=== PATIENT | male | born 1955 | race Two or more races ===

== ENCOUNTER 2022-06-16 21:33 | Inpatient (IN) | payer BC, MEDICARE ==
[~2022-06-16] VITALS: Ht 175.3 cm; Wt 55.3 kg
--- NOTE | 2022-06-16 21:45 | NUR ---
BIB FOR C/O SOB. PT HAS TRACH STOMA WITHOUT A TRACH IN PLACE WAS SEEN AT [facility]. TESTE + FOR INFULENZA 1. AMBULATORY, PLACED IN BED, BREATHING UNLABORED SATURATING AT 94%RA
[2022-06-16] MEDS ORDERED: ALBUTEROL FS 2.5 MG/0.5 ML VIAL.NEB NEB ONE (22:00)
[2022-06-16] MEDS ORDERED: IPRATROPIUM NEB FS 0.5 MG/2.5 ML AMPUL.NEB NEB ONE (22:00)
[2022-06-16] MEDS ORDERED: ALBUTEROL FS 2.5 MG/0.5 ML VIAL.NEB ONE (22:12)
[2022-06-16] MEDS ORDERED: IPRATROPIUM NEB FS 0.5 MG/2.5 ML AMPUL.NEB ONE (22:12)
--- NOTE | 2022-06-16 22:14 | NUR ---
EMT AT PT'S BEDSIDE FOR EKG
--- NOTE | 2022-06-16 22:16 | NUR ---
RESEARCH ANTHROPOLOGIST AT PT'S BEDSIDE
--- NOTE | 2022-06-16 22:25 | NUR ---
SWAB FOR COVID19 SENT TO LAB
[2022-06-16 22:39] LABS: BASOPHILS % (AUTO) 0.1 % (0.0-2.0); HEMATOCRIT 42 % (39-51); HEMOGLOBIN 13.4 g/dL (13.5-17.5); LYMPHOCYTES # (AUTO) 0.2 K/uL (0.8-4.8); LYMPHOCYTES % (AUTO) 2.3 % (20.0-44.0); MEAN CORPUSCULAR HGB CONC 32 g/dl (31.0-36.0); MEAN CORPUSCULAR VOLUME 91 fL (80-96); MONOCYTES # (AUTO) 0.6 K/uL (0.1-1.30); MONOCYTES % (AUTO) 5.4 % (2.0-12.0); NEUTROPHILS # (AUTO) 9.9 K/uL (1.8-8.9); NEUTROPHILS % (AUTO) 92.2 % (43.0-81.0); PLATELET COUNT (AUTO) 279 K/uL (150-450); RED BLOOD CELL COUNT(AUTO) 4.55 MIL/uL (4.5-6.0); WHITE BLOOD COUNT (AUTO) 10.8 K/uL (4.3-11.0)
--- NOTE | 2022-06-16 22:49 | NUR ---
SWAB FOR RAPID INFLUENZA SENT TO LAB
[2022-06-16 22:58] LABS: ALANINE AMINOTRANSFERASE 26 U/L (12-78); ALKALINE PHOSPHATASE 133 U/L (46-116); ASPARTATE AMINOTRANSFERASE 47 U/L (15-37); BILIRUBIN,DIRECT 0.3 mg/dL (0.0-0.2); BILIRUBIN,TOTAL 0.7 mg/dL (0.2-1.0); CALCIUM, SERUM 8.4 mg/dL (8.5-10.1); CARBON DIOXIDE 26 mmol/L (21-32); CHLORIDE 96 mmol/L (98-107); CREATININE 0.9 mg/dL (0.6-1.3); GLUCOSE 105 mg/dL (74-106); POTASSIUM 3.9 mmol/L (3.5-5.1); SODIUM SERUM 131 mmol/L (136-145); TOTAL PROTEIN, SERUM 7.4 g/dL (6.4-8.2); UREA NITROGEN, BLOOD 11 mg/dL (7-18)
[2022-06-16] MEDS ORDERED: ADENOSINE 6 MG/2 ML VIAL ONE ×3 (23:25→23:43)
[2022-06-16] MEDS ORDERED: ADENOSINE 6 MG/2 ML VIAL IVP ONE (23:30)
[2022-06-16] MEDS ORDERED: DILTIAZEM HCL 25 MG IV ONE (23:57)
[2022-06-17] MEDS ORDERED: DILTIAZEM HCL 50 MG IV IV ONE
[2022-06-17] MEDS ORDERED: ADENOSINE 6 MG/2 ML VIAL IVP ONE ×2
[2022-06-17] MEDS ORDERED: DILTIAZEM HCL 50 MG IV ONE (00:25)
[2022-06-17] MEDS ORDERED: DILTIAZEM HCL 25 MG IV ONE (00:25)
[2022-06-17] MEDS ORDERED: DILTIAZEM HCL IV 125 MG in IV NS 0.9% 100 ML IV PRN (00:30)
[2022-06-17] MEDS ORDERED: oxyCODONE IR immediate release 5 MG PO ONE (02:00)
[2022-06-17] MEDS ORDERED: oxyCODONE IR immediate release 5 MG ONE (02:09)
[2022-06-17] MEDS ORDERED: ONDANSETRON HCL/PF 4 MG/2 ML VIAL IVP PRN (02:30)
[2022-06-17] MEDS ORDERED: ACETAMINOPHEN 325 MG TABLET PO PRN (02:30)
[2022-06-17] MEDS ORDERED: ALBUTEROL FS 2.5 MG/0.5 ML VIAL.NEB NEB PRN (02:30)
[2022-06-17] MEDS ORDERED: MORPHINE SULFATE INJ 2 MG/ML DISP.SYRIN IV PRN ×2 (02:30→10:00)
[2022-06-17] MEDS ORDERED: hydrALAZINE HCL IV 20 MG VIAL IV PRN (02:30)
[2022-06-17 02:46] LABS: THYROID STIMULATING HORMONE 1.63 uIU/mL (0.358-3.74)
[2022-06-17] MEDS ORDERED: IOHEXOL-350 100 ML VIAL IV ONE (05:08)
[2022-06-17] MEDS ORDERED: IV NS 0.9% 250 ML IV ONE (05:09)
--- NOTE | 2022-06-17 05:17 | NUR ---
TAKEN TO CT VIA JON
[2022-06-17] MEDS ORDERED: IPRATROPIUM/ALBUTEROL INHALER IH SCH (06:00)
[2022-06-17] MEDS ORDERED: ENOXAPARIN SODIUM 60 MG/0.6 ML DISP.SYRIN SQ SCH (06:35)
--- NOTE | 2022-06-17 07:15 | NUR ---
RECEIVED PT FROM CHAGO RN PT AWAKE AND ALERT DINNES CHEST PAIN
--- NOTE | 2022-06-17 07:25 | NUR ---
WITH TRACH STOMA AND TRACK MASK FIO2 6L STOMA MASK
[2022-06-17] MEDS ORDERED: MORPHINE SULFATE INJ 2 MG/ML DISP.SYRIN ONE (07:47)
[2022-06-17] MEDS ORDERED: ENOXAPARIN SODIUM 60 MG/0.6 ML DISP.SYRIN SQ ONE (07:47)
--- NOTE | 2022-06-17 07:50 | NUR ---
UA SENT TO LAB
--- NOTE | 2022-06-17 08:30 | NUR ---
HAND OFF DANNIELLE RN TO ROOM 105
--- NOTE | 2022-06-17 08:38 | NUR ---
RESTING AT THIS TIME NO ACUTE DISTRESS C/O PAIN 12/07 AND ONLY REQUSTED OX 15MG
--- NOTE | 2022-06-17 08:54 | NUR ---
ECCHO CARDO GRAM DONE AT BED SIDE
[2022-06-17] MEDS ORDERED: LORAZEPAM INJ 2 MG/ML VIAL ONE (09:03)
[2022-06-17] MEDS ORDERED: HYDROMORPHONE 1 MG/1 ML DISP.SYRIN IV PRN (09:30)
[2022-06-17] MEDS ORDERED: CEFTRIAXONE 1 G in IV D5W 50 ML IV SCH (10:00)
--- NOTE | 2022-06-17 10:00 | NUR ---
RN NOTE RECEIVED PATIENT IN STABLE CONDITION PLACED IN ROOM 105
[2022-06-17] MEDS ORDERED: OXYC15TA2 PO (10:50)
[2022-06-17] MEDS ORDERED: OXYC60TA8 PO (10:50)
[2022-06-17] MEDS ORDERED: AMIODARONE 150 MG in IV D5W 100 ML IV ONE (11:00)
[2022-06-17] MEDS: methylPREDNISolone SOD SUCC 125 MG/2ML VIAL IV SCH ×3 (11:17→20:13)
[2022-06-17 12:00] VITALS: BP 126/81
[2022-06-17] MEDS: PIPERACILLIN /TAZOBACTAM 3.375 G in IV D5W 50 ML IV SCH ×3 (12:00→23:45)
[2022-06-17] MEDS: oxyCODONE HCL SR 20MG TAB.SR.12H PO SCH ×2 (12:11→16:33)
[2022-06-17] MEDS: AMIODARONE 450 MG in IV D5W 241 ML IV PRN ×2 (12:24→19:12)
[2022-06-17] MEDS ORDERED: ALBUTEROL FS 2.5 MG/3 ML VIAL.NEB NEB SCH (13:30)
[2022-06-17 16:00] VITALS: BP 124/65
--- NOTE | 2022-06-17 19:17 | NUR ---
RN CLOSING NOTE PATIENT IN BED A/OX4 ON TRACH MASK WITH NO CURRENT SOB OR PAIN EXPRESSED. PATIENT IS CURRENTLY ON CARDIZEM DRIP RUNNING 0.5MG/MIN NEW BAG WAS PLACED.ON TELE MONITOR. PATIENT IS ABLE TO MAKE NEEDS KNOWN. SAFETY MEASURES IN PLACE PER HOSPITAL POLICY WILL ENDORSE TO NIGHT NURSE OF ADIEL.
--- NOTE | 2022-06-17 19:30 | NUR ---
RN OPENING NOTE RECEIVED PATIENT IN BED, AWAKE, A/O X 4, PT NOTED TO HAVE TRACH STOMA BUT WITH NO TRACH IN PLACE. ABLE TO MAKE NEEDS KNOWN BY USING DEVICE UNDER HIS THROAT WHERE HECAN TALK AND BE UNDERSTOOD. CURRENTLY ON TRACH MASK AT 6LPM, TOLERATING WELL WITH NO S/SX OF ACUTE RESPI DISTRESS NOTED AT THIS TIME. TELE MONITOR READS AFIB WITH HR IN THE 60s. IV ACCESS ON LFA AND LALI ML INFUSING AMIO DRIP @ 0.5 MG/MIN. ALL SAFETY MEASURES IN PLACE PER HOSPITAL POLICY: BED LOCKED IN LOW POSITION, BED ALARM ON, CALL LIGHT WITHIN REACH. WILL CONTINUE TO MONITOR PT.
[2022-06-17 20:00] VITALS: BP 130/78
[2022-06-17] MEDS: DOXYCYCLINE HYCLATE (100 MG) 100 MG TABLET PO SCH (20:14)
[2022-06-17] MEDS: ENOXAPARIN SODIUM 60 MG/0.6 ML DISP.SYRIN SQ SCH (20:16)
[2022-06-17] MEDS: IPRATROPIUM NEB FS 0.5 MG/2.5 ML AMPUL.NEB NEB SCH (20:25)
[2022-06-17] MEDS: oxyCODONE IR immediate release 5 MG PO PRN (20:27)
[2022-06-18] VITALS: BP 132/80
[2022-06-18] MEDS: IPRATROPIUM NEB FS 0.5 MG/2.5 ML AMPUL.NEB NEB SCH ×4 (01:30→20:23)
[2022-06-18] MEDS: oxyCODONE IR immediate release 5 MG PO PRN ×3 (01:32→17:39)
[2022-06-18 04:00] VITALS: BP 118/68
[2022-06-18] MEDS: PIPERACILLIN /TAZOBACTAM 3.375 G in IV D5W 50 ML IV SCH ×3 (05:05→17:05)
[2022-06-18] MEDS: methylPREDNISolone SOD SUCC 125 MG/2ML VIAL IV SCH ×3 (05:10→21:19)
--- NOTE | 2022-06-18 06:37 | NUR ---
RN NOTE PT REMAINED STABLE T/O THE NIGHT. ALL DUE MEDS GIVEN. NEEDS ATTENDED TO. WILL ENDORSE TO AM SHIFT NURSE FOR ADIEL.
[2022-06-18 06:55] LABS: HEMATOCRIT 38 % (39-51); HEMOGLOBIN 12.5 g/dL (13.5-17.5); LYMPHOCYTES # (AUTO) 0.2 K/uL (0.8-4.8); LYMPHOCYTES % (AUTO) 4.3 % (20.0-44.0); MEAN CORPUSCULAR HGB CONC 33 g/dl (31.0-36.0); MEAN CORPUSCULAR VOLUME 91 fL (80-96); MONOCYTES # (AUTO) 0.3 K/uL (0.1-1.30); MONOCYTES % (AUTO) 4.6 % (2.0-12.0); NEUTROPHILS # (AUTO) 5.3 K/uL (1.8-8.9); NEUTROPHILS % (AUTO) 91.1 % (43.0-81.0); PLATELET COUNT (AUTO) 299 K/uL (150-450); RED BLOOD CELL COUNT(AUTO) 4.22 MIL/uL (4.5-6.0); WHITE BLOOD COUNT (AUTO) 5.8 K/uL (4.3-11.0)
--- NOTE | 2022-06-18 07:48 | NUR ---
RN OPENING NOTE RECEIVED PATIENT IN BED, AWAKE, A/O X 4, PT NOTED TO HAVE TRACH STOMA BUT WITH NO TRACH IN PLACE. ABLE TO MAKE NEEDS KNOWN BY USING DEVICE UNDER HIS THROAT WHERE HECAN TALK AND BE UNDERSTOOD. CURRENTLY ON TRACH MASK AT 6LPM, TOLERATING WELL WITH NO S/SX OF ACUTE RESPI DISTRESS NOTED AT THIS TIME. TELE MONITOR READS AFIB WITH HR IN THE 60s. IV ACCESS ON LFA AND LALI ML INFUSING AMIO DRIP @ 0.5 MG/MIN. BED IS AT LOWEST POSITION , CALL LIGHT WITHIN REACH , BED ALARM IS ON, BED SIDE RAILS ARE UP , WILL CONTINUE TO MONITOR
[2022-06-18 07:51] LABS: ALBUMIN 2.5 g/dL (3.4-5.0); BILIRUBIN,TOTAL 0.5 mg/dL (0.2-1.0); CALCIUM, SERUM 8.7 mg/dL (8.5-10.1); CREATININE 0.8 mg/dL (0.6-1.3); MAGNESIUM 2.4 mg/dL (1.8-2.4); PHOSPHORUS 2.6 mg/dL (2.5-4.9); POTASSIUM 4.2 mmol/L (3.5-5.1); TOTAL PROTEIN, SERUM 6.9 g/dL (6.4-8.2)
[2022-06-18 08:00] VITALS: BP 153/89
[2022-06-18] MEDS: oxyCODONE HCL SR 20MG TAB.SR.12H PO SCH ×4 (08:49→21:19)
--- NOTE | 2022-06-18 08:49 | NUR ---
RN NOTE PATIENT GOT OXY IR 15 MG PRN MED AT 0730 , HOLD OXYCODONE FOR NOW
[2022-06-18] MEDS: DOXYCYCLINE HYCLATE (100 MG) 100 MG TABLET PO SCH ×2 (08:52→21:19)
[2022-06-18] MEDS: ENOXAPARIN SODIUM 60 MG/0.6 ML DISP.SYRIN SQ SCH ×2 (08:55→21:20)
[2022-06-18] MEDS ORDERED: NALOXONE HCL 0.4 MG/ML AMPUL IV PRN ×3 (10:30→17:30)
[2022-06-18] MEDS ORDERED: oxyCODONE HCL SR 20MG TAB.SR.12H PO ONE (10:30)
--- NOTE | 2022-06-18 10:30 | NUR ---
amiodarone drip bag infused , dr Dominguez notified , order to d/c amiodarone received
[2022-06-18 13:05] VITALS: BP 145/75
[2022-06-18 16:07] VITALS: BP 137/71
[2022-06-18] MEDS ORDERED: oxyCODONE HCL SR 20MG TAB.SR.12H PO SCH (17:30)
--- NOTE | 2022-06-18 17:40 | NUR ---
RN NOTE PATIENT REQUESTED TO GET NEXT DOSE OF THE OXYCODONE 60 MG AT 10 PM
--- NOTE | 2022-06-18 18:26 | NUR ---
RN CLOSING NOTE PATIENT IN BED A/OX4 ON TRACH MASK WITH NO CURRENT SOB OR PAIN EXPRESSED. PATIENT IS CURRENTLY complited CARDIZEM DRIP ON TELE MONITOR AFIB 85. PATIENT IS ABLE TO MAKE NEEDS KNOWN. SAFETY MEASURES IN PLACE PER HOSPITAL POLICY, ALL MEDICATIONS WERE ADMINISTERD , ALL NEEDS WERE MET WILL ENDORSE TO NIGHT NURSE OF ADIEL.
[2022-06-18 20:00] VITALS: BP 133/84
--- NOTE | 2022-06-18 21:19 | NUR ---
MARK ANTHONY RN OPENING NOTE PT RECEIVED IN BED, AWAKE, A&O X4, CALM, COOPERATIVE. PT NOTED TO HAVE TRACH COLLAR WITH 8L O2 AND CURRENT O2SAT OF 99%; NOTED TO HAVE SLIGHT SOB AND COUGH. PT ATTACHED TO EXTERNAL MONITOR, AFIB WITH HR OF 71. IV ACCESS ON LALI MIDLINE AND LFA 20G INTACT AND PATENT, FLUSHES EASILY WITH NO RESISTANCE, NS TKO INFUSING. BED IN LOWEST POSITION, CALL LIGHT WITHIN REACH, SIDE RAILS UP X2. WILL CONTINUE TO MONITOR THROUGHOUT THE NIGHT.
--- NOTE | 2022-06-18 23:37 | NUR ---
RN NOTE PT REPORTS OF DYSPEPSIA. ORDER RECEIVED FROM MATTY FOR MAALOX 30 ML. ORDER CARRIED OUT.
[2022-06-19] VITALS (19 sets, daily range): BP systolic 97–181; BP diastolic 61–123
[2022-06-19] MEDS ORDERED: MAG HYDROX/AL HYDROX/SIMETH 30 ML UDC PO PRN ×2 (00:30)
[2022-06-19] MEDS: PIPERACILLIN /TAZOBACTAM 3.375 G in IV D5W 50 ML IV SCH ×4 (00:35→17:01)
[2022-06-19] MEDS: IPRATROPIUM NEB FS 0.5 MG/2.5 ML AMPUL.NEB NEB SCH ×5 (01:19→19:36)
--- NOTE | 2022-06-19 01:23 | NUR ---
RN NOTE PT REFUSED BREATHING TREATMENTS SCHEDULED FOR 0120
[2022-06-19] MEDS: oxyCODONE HCL SR 20MG TAB.SR.12H PO SCH ×3 (05:00→20:36)
[2022-06-19] MEDS: methylPREDNISolone SOD SUCC 125 MG/2ML VIAL IV SCH ×3 (05:36→20:35)
[2022-06-19 07:09] LABS: BASOPHILS % (AUTO) 0.2 % (0.0-2.0); HEMATOCRIT 37 % (39-51); HEMOGLOBIN 11.8 g/dL (13.5-17.5); LYMPHOCYTES # (AUTO) 0.3 K/uL (0.8-4.8); LYMPHOCYTES % (AUTO) 4.4 % (20.0-44.0); MEAN CORPUSCULAR HGB CONC 32 g/dl (31.0-36.0); MEAN CORPUSCULAR VOLUME 90 fL (80-96); MONOCYTES # (AUTO) 0.4 K/uL (0.1-1.30); MONOCYTES % (AUTO) 6.5 % (2.0-12.0); NEUTROPHILS # (AUTO) 5.7 K/uL (1.8-8.9); NEUTROPHILS % (AUTO) 88.9 % (43.0-81.0); PLATELET COUNT (AUTO) 321 K/uL (150-450); RED BLOOD CELL COUNT(AUTO) 4.04 MIL/uL (4.5-6.0); WHITE BLOOD COUNT (AUTO) 6.4 K/uL (4.3-11.0)
--- NOTE | 2022-06-19 07:10 | NUR ---
MARK ANTHONY RN CLOSING NOTE PT REMAINS IN BED, AWAKE, A&O X4, APPEARS TO BE RESTLESS AND ANXIOUS. TRACH COLLAR INTACT AND PATENT, PT ABLE TO SUCTION SELF. O2SAT RANGED FROM 99%-100% THROUGHOUT THE NIGHT; NOTED TO HAVE COUGH AND SOB, NO OTHER S/S OF RESP DISTRESS, NON-LABORED AND EQUAL BREATHING. ATTACHED TO EXTERNAL MONITOR, AFIB WITH HR LOW 38 NOT SUSTAINED AND HIGH 138 AT 0530 WHEN PT WAS PANICKING. LALI MIDLINE INTACT AND PATENT WITH NS TKO INFUSING. ALL DUE MEDS ADMINISTERED DURING THE NIGHT. BED IN LOWEST POSITION, CALL LIGHT WITHIN REACH, SIDE RAILS UP X2. WILL ENDORSE TO DAYSHIFT NURSE TO CONTINUE CARE.
--- NOTE | 2022-06-19 07:15 | NUR ---
MARK ANTHONY RN OPEN NOTE PT REMAINS IN BED, AWAKE, A&O X4, APPEARS TO BE RESTLESS AND ANXIOUS. TRACH COLLAR INTACT AND PATENT, PT ABLE TO SUCTION SELF. O2SAT RANGED FROM 99% NOTED TO HAVE COUGH AND SOB, NO OTHER S/S OF RESP DISTRESS, NON-LABORED AND EQUAL BREATHING. ATTACHED TO EXTERNAL MONITOR, AFIB WITH HR 76 LALI MIDLINE INTACT AND PATENT WITH NS TKO INFUSING.PATIENT IS NPO TO CARDIOVERSION SCEDULAED TOADAY AT [address] DEBBY Louis BED IN LOWEST POSITION, CALL LIGHT WITHIN REACH, SIDE RAILS UP X2. WILL CONTINUE TO MONITOR
[2022-06-19 07:36] LABS: CALCIUM, SERUM 8.7 mg/dL (8.5-10.1); CREATININE 0.7 mg/dL (0.6-1.3); POTASSIUM 3.8 mmol/L (3.5-5.1)
--- NOTE | 2022-06-19 08:00 | NUR ---
PATIENT TAKEN TO ICU FOR CARDIOVERSION , REPORT WAS GIVEN TO THE SAIMA RIOS
--- NOTE | 2022-06-19 08:00 | NUR ---
ICU/RN PT IS TRANSFERED FROM TELE UNIT.FOR CARDIOVERSION.V/S STABLE,AFEBRILE.NO PAIN REPORTED AT THIS TIME.PT HAS NECK STOMA ,NO TRACHEOSTOMY ON 6 L ,SAT O2-100%. A-FIB ON MONITOR.AWAKE,ALERT.USE URINAL. RIGHT UPPER ARM MIDLINE HAS RESISTANCE.
[2022-06-19] MEDS ORDERED: methylPREDNISolone SOD SUCC 125 MG/2ML VIAL ONE (08:05)
[2022-06-19] MEDS ORDERED: ANESTHESIA TRAY IN PYXIS 1 EA TRAY MC ONE (08:14)
[2022-06-19] MEDS: DOXYCYCLINE HYCLATE (100 MG) 100 MG TABLET PO SCH ×2 (08:36→20:35)
[2022-06-19] MEDS: ENOXAPARIN SODIUM 60 MG/0.6 ML DISP.SYRIN SQ SCH ×2 (08:37→20:38)
--- NOTE | 2022-06-19 09:00 | NUR ---
ICU/RN NEW IV LINE STARTED ON THE RIGHT HAND.
--- NOTE | 2022-06-19 09:15 | NUR ---
ICU/RN CARDIOVERSION DONE BY DR GARIBAY.PT IS SINUS RHYTHM. EKG ORDERED.PROPOFOL WAS GIVEN BY ANESTHESIOLOGIST. STILL RECOVERING.
--- NOTE | 2022-06-19 10:00 | NUR ---
ICU/RN DUE MEDS ARE GIVEN ORDERED.OK TO TRANSFER TO TELE
[2022-06-19] MEDS: AMIODARONE HCL 200 MG TABLET PO SCH ×2 (10:39→16:09)
[2022-06-19] MEDS: oxyCODONE IR immediate release 5 MG PO PRN ×3 (10:59→22:19)
--- NOTE | 2022-06-19 11:00 | NUR ---
ICU/RN PT C/O OF PAIN 8-02/07.OXYCODONE PO GIVEN ORDERED.PT TRANSFER BACK TO MARK ANTHONY.REPORT GIVEN TO RAFAEL/SAIMA
--- NOTE | 2022-06-19 18:22 | NUR ---
MARK ANTHONY RN CLOSING NOTE PT REMAINS IN BED, AWAKE, A&O X4, TRACH COLLAR INTACT AND PATENT, PT ABLE TO SUCTION SELF. O2SAT 99% NOTED TO HAVE COUGH AND SOB, NO OTHER S/S OF RESP DISTRESS, NON-LABORED AND EQUAL BREATHING. ATTACHED TO EXTERNAL MONITOR, sr WITH HR 76 AFTER CARDIOVERSION .PATIENT TOLERATED PROCEDURE WELL.MID LINE GOT CLOTTED BUT PATIENT REFUSED FOR ME TO REMOVE IT , IV LINE STARTED IN ICU 24 G ON HIS LEFT WRIST , BLOODT DRESSING , PATIENT REFUSING TO CLEAN /CHANGE THE DRESSING TKO RUNNING AT 10 ML/HR . PATIENT IS BACK TO PURE DIET .ALL MEDICATIONS WERE ADMINISTERED , ALL NEEDS WERE MET. BED IS IN LOWEST POSITION, CALL LIGHT WITHIN REACH, SIDE RAILS UP X2. WILL ENDORSE BOWLING BALL ENGRAVER NURSE TO FALLOW POC
--- NOTE | 2022-06-19 21:03 | NUR ---
BROILER CHEF OR COOK OPENING NOTE PT RECEIVED IN BED, AWAKE, A&O X4, CALM, COOPERATIVE. PT'S STOMA INTACT AND PATENT, ON 8L O2 WITH CURRENT O2SAT OF 99%; NOTED TO HAVE COUGH AND SOB; NO OTHER S/S OF RESP DISTRESS, NON-LABORED AND EQUAL BREATHING. PT ATTACHED TO EXTERNAL MONITOR, SR WITH HR OF 62. IV ACCESS ON RIGHT WRIST 20G, INTACT AND PATENT, FLUSHES EASILY WITH NO RESISTANCE, NS AT TKO. BED IN LOWEST POSITION, CALL LIGHT WITHIN REACH, SIDE RAILS UP X3. WILL CONTINUE TO MONITOR THROUGHOUT THE NIGHT. Addendum: 06/19/22 at 2250 by PRINCESS FAYE LANDAVERDE MARK ANTHONY RN OPENING NOTE
--- NOTE | 2022-06-19 22:19 | NUR ---
RN NOTE PT EXPERIENCING BREAKTHROUGH PAIN AND IS SCALED 8/10. PT REQUESTS FOR OXYCODONE. PT ADMINISTERED OXYCODONE 15 MG IMMEDIATE RELEASE. WILL MONITOR FOR EFFECTIVENESS.
[2022-06-20] VITALS: BP 137/72
[2022-06-20] MEDS: PIPERACILLIN /TAZOBACTAM 3.375 G in IV D5W 50 ML IV SCH ×5 (00:01→23:37)
[2022-06-20] MEDS: IPRATROPIUM NEB FS 0.5 MG/2.5 ML AMPUL.NEB NEB SCH ×4 (01:30→19:30)
[2022-06-20 04:00] VITALS: BP 141/89
[2022-06-20] MEDS: methylPREDNISolone SOD SUCC 125 MG/2ML VIAL IV SCH (04:12)
[2022-06-20] MEDS: oxyCODONE HCL SR 20MG TAB.SR.12H PO SCH ×3 (04:12→13:14)
[2022-06-20] MEDS: oxyCODONE IR immediate release 5 MG PO PRN ×3 (05:12→18:48)
--- NOTE | 2022-06-20 05:12 | NUR ---
RN NOTE PT CONTINUES TO HAVE SEVERE PAIN. PT ADMINISTERED 15 MG OF OXYCODONE. WILL MONITOR FOR EFFECTIVENESS.
--- NOTE | 2022-06-20 06:21 | NUR ---
MARK ANTHONY RN CLOSING NOTE PT REMAINS IN BED, ASLEEP BUT EASILY AROUSABLE. TRACH COLLAR INTACT AND PATENT WITH O2 AT 10L AND FIO2 AT 40%; CONTINUES TO HAVE SOB AND COUGH; NO OTHER S/S OF RESP DISTRESS, NON-LABORED AND EQUAL BREATHING. ATTACHED TO EXTERNAL MONITOR, SR-SB WITH PACS, HR NOTED TO BE LOW 40S. RIGHT WRIST 24G INTACT AND PATENT, FLUSHES EASILY WITH NO RESISTANCE; NS TKO INFUSING. ALL DUE MEDS ADMINISTERED DURING THE NIGHT. BED IN LOWEST POSITION, CALL LIGHT WITHIN REACH, SIDE RAILS UP X3. WILL ENDORSE TO DAYSHIFT NURSE TO CONTINUE CARE.
[2022-06-20 06:57] LABS: HEMATOCRIT 36 % (39-51); HEMOGLOBIN 11.6 g/dL (13.5-17.5); LYMPHOCYTES # (AUTO) 0.3 K/uL (0.8-4.8); MEAN CORPUSCULAR HGB CONC 33 g/dl (31.0-36.0); MEAN CORPUSCULAR VOLUME 91 fL (80-96); MONOCYTES # (AUTO) 0.5 K/uL (0.1-1.30); MONOCYTES % (AUTO) 7.2 % (2.0-12.0); NEUTROPHILS % (AUTO) 88.8 % (43.0-81.0); PLATELET COUNT (AUTO) 285 K/uL (150-450); WHITE BLOOD COUNT (AUTO) 6.8 K/uL (4.3-11.0)
--- NOTE | 2022-06-20 07:30 | NUR ---
MARK ANTHONY RN OPENING NOTE PT REMAINS IN BED, ASLEEP BUT EASILY AROUSABLE. TRACH COLLAR INTACT AND PATENT WITH O2 AT 10L AND FIO2 AT 40%; NO S/S OF RESP DISTRESS, NON-LABORED AND EQUAL BREATHING. PT ON TELE MONITOR CURRENTLY READING A FIB 48. NO SIGNS OF PAIN OR DISCOMFORT NOTED AT THIS TIME. PT HAS R WRIST 24 G INTACT, PATENT AND FLUSHES WELL. ALL SAFETY MEASURES IN PLACE. CALL LIGHT WITHIN REACH. BED LOCKED AND IN LOWEST POSITION, SIDE RAILS UP X3. BED ALARM ON
[2022-06-20 07:53] LABS: CALCIUM, SERUM 8.5 mg/dL (8.5-10.1); CREATININE 0.7 mg/dL (0.6-1.3); POTASSIUM 4.2 mmol/L (3.5-5.1)
[2022-06-20 08:00] VITALS: BP 144/76
[2022-06-20] MEDS: AMIODARONE HCL 200 MG TABLET PO SCH ×2 (08:04→17:00)
[2022-06-20] MEDS: DOXYCYCLINE HYCLATE (100 MG) 100 MG TABLET PO SCH ×2 (08:41→20:20)
[2022-06-20] MEDS: ENOXAPARIN SODIUM 60 MG/0.6 ML DISP.SYRIN SQ SCH (08:42)
[2022-06-20 12:00] VITALS: BP 151/95
[2022-06-20] MEDS: ENSURE ENLIVE 237 ML LIQUID (VANILLA) PO SCH ×2 (12:00→17:54)
--- NOTE | 2022-06-20 13:15 | NUR ---
RN NOTE pt refused scheduled oxycodone 20 mg. returned in omincell witnessed by Layla LANDAVERDE. preferred oxycodone 15 mg. scheduled oxycodone 20 mg for 1300 not given Addendum: 06/20/22 at 1358 by FRANCOIS LYMAN RN patient preferred oxycodone 15 mg
[2022-06-20 16:00] VITALS: BP 142/115
[2022-06-20] MEDS: APIXABAN 5 MG TABLET PO SCH (16:39)
--- NOTE | 2022-06-20 18:48 | NUR ---
RN NOTE PT ASKED FOR OXYCODONE 60 MG DURING TIME THAT WAS NOT SCHEDULED. PT REFUSED 1300 OXYCODONE 60 MG DOSE. MADE PATIENT AWARE THAT CANNOT BE GIVEN EARLIER BECAUSE IT IS A CONTROLLED NARCOTIC. EXPLAINED TO PT AND PT THAT OXYCODONE 60 MG IS SCHEDULED FOR 0500, 1300, 2100 AND CANNOT BE GIVEN EARLIER BECAUSE IT IS A CONTROLLED NARCOTIC AND OMNICELL WONT OPEN FOR MEDICATION. EDUCATED PT THAT OXYCODONE IMMEDIATE RELEASE 15 MG IS Q4 HR PRN AND CAN BE GIVEN AT THIS TIME. NOTIFIED FREELANCE WRITER TO EXPLAIN SITUATION. FREELANCE WRITER SPOKE WITH PT AND PT VERBALIZED UNDERSTANDING. ADMINISTERED OXYCODONE 15 MG IMMEDIATE RELEASE.
[2022-06-20 20:00] VITALS: BP 114/70
--- NOTE | 2022-06-20 20:09 | NUR ---
RN NOTE OXYCONTIN 60 MG SR Q8H SCHEDULED FOR 0500, 1300, 2100. PT REFUSED 1300 DOSE. REQUESTED DERMENDJIAN FOR OXYCONTIN 60 MG SR ONCE TO BE GIVEN AT 2100; DERMENDJIAN ACCEPTED. ORDER CARRIED OUT.
[2022-06-20] MEDS ORDERED: oxyCODONE HCL SR 20MG TAB.SR.12H PO SCH ×2 (20:30)
[2022-06-20] MEDS ORDERED: NALOXONE HCL 0.4 MG/ML AMPUL IV PRN ×2 (20:30→21:00)
--- NOTE | 2022-06-20 20:49 | NUR ---
MARK ANTHONY RN CLOSING NOTE PT REMAINS IN BED. PT ALERT AND ORIENTED X4. TRACH COLLAR INTACT AND PATENT WITH O2 AT 10L AND FIO2 AT 40%;NON-LABORED AND EQUAL BREATHING. PT ON TELE MONITOR. PT HAS R WRIST 24 G INTACT, PATENT AND FLUSHES WELL. ALL SAFETY MEASURES IN PLACE. CALL LIGHT WITHIN REACH. BED LOCKED AND IN LOWEST POSITION, SIDE RAILS UP X3. BED ALARM ON. ENDORSED TO ECHOCARDIOLOGIST RN FOR CONTUITY OF CARE
[2022-06-20] MEDS ORDERED: oxyCODONE HCL SR 20MG TAB.SR.12H PO ONE (21:00)
--- NOTE | 2022-06-20 22:04 | NUR ---
MARK ANTHONY RN OPENING NOTE PT RECEIVED IN BED, AWAKE, A&O X4; APPEARS SLIGHTLY RESTLESS. PT'S STOMA INTACT AND PATENT WITH O2 AT 10L AND FIO2 OF 40%; CURRENT O2SAT OF 99%; HAS SOB AND COUGH; NO OTHER S/S OF RESP DISTRESS, NON-LABORED AND EQUAL BREATHING. PT ATTACHED TO EXTERNAL MONITOR, SR WITH HR OF 73. IV ACCESS ON RIGHT WRIST 24G, INTACT AND PATENT, FLUSHES EASILY WITH NO RESISTANCE, NS TKO. BED IN LOWEST POSITION, CALL LIGHT WITHIN REACH, SIDE RAILS UP X2. WILL CONTINUE TO MONITOR THROUGHOUT THE NIGHT.
[2022-06-21] VITALS: BP 104/78
[2022-06-21] MEDS: IPRATROPIUM NEB FS 0.5 MG/2.5 ML AMPUL.NEB NEB SCH ×4 (01:30→20:05)
[2022-06-21 04:00] VITALS: BP 143/71
[2022-06-21] MEDS: oxyCODONE HCL SR 20MG TAB.SR.12H PO SCH ×3 (04:23→22:23)
[2022-06-21] MEDS: PIPERACILLIN /TAZOBACTAM 3.375 G in IV D5W 50 ML IV SCH ×3 (05:25→18:25)
[2022-06-21] MEDS: oxyCODONE IR immediate release 5 MG PO PRN ×2 (06:19→16:14)
--- NOTE | 2022-06-21 06:20 | NUR ---
RN NOTE PT COMPLAINS OF BREAKTHROUGH PAIN SCALED 8/10. PT ADMINISTERED OXYCODONE IR 15 MG. WILL MONITOR FOR EFFECTIVENESS.
--- NOTE | 2022-06-21 06:34 | NUR ---
RN NOTE PT REMAINS IN BED, ASLEEP BUT EASILY AROUSABLE, A&O X4; NOTED TO HAVE PERIODS OF IRRITABILITY BUT CALM AND COOPERATIVE OVERALL. CONTINUES TO BE ON 10L 40% FIO2 VIA STOMA; O2SAT RANGED FROM 99%-100% THROUGHOUT THE NIGHT. ATTACHED TO EXTERNAL MONITOR, SB-SR WITH HR LOW 55, NOT SUSTAINED. IV ACCESS ON RIGHT WRIST 24G, INTACT AND PATENT, FLUSHES EASILY WITH NO RESISTANCE, NS TKO. ALL DUE MEDS ADMINISTERED DURING THE NIGHT. BED IN LOWEST POSITION, CALL LIGHT WITHIN REACH, SIDE RAILS UP X3. WILL ENDORSE TO DAYSUTFT NURSE TO CONTINUE CARE. Addendum: 06/21/22 at 0659 by PRINCESS FAYE LANDAVERDE MARK ANTHONY LANDAVERDE CLOSING NOTE
--- NOTE | 2022-06-21 07:11 | NUR ---
MARK ANTHONY RN OPENING NOTE PT IN BED, ASLEEP BUT EASILY AROUSABLE. TRACH COLLAR INTACT AND PATENT WITH O2 AT 10L AND FIO2 AT 40%; NO S/S OF RESP DISTRESS, NON-LABORED AND EQUAL BREATHING. PT ON TELE MONITOR CURRENTLY READING A FIB 48. NO SIGNS OF PAIN OR DISCOMFORT NOTED AT THIS TIME. PT HAS R WRIST 24 G INTACT, PATENT AND FLUSHES WELL. ALL SAFETY MEASURES IN PLACE. CALL LIGHT WITHIN REACH. BED LOCKED AND IN LOWEST POSITION, SIDE RAILS UP X3. BED ALARM ON.WILL MONITOR
[2022-06-21] MEDS: ENSURE ENLIVE 237 ML LIQUID (VANILLA) PO SCH ×3 (07:42→17:22)
[2022-06-21 08:00] VITALS: BP 139/78
[2022-06-21] MEDS: AMIODARONE HCL 200 MG TABLET PO SCH ×2 (08:40→16:13)
[2022-06-21] MEDS: APIXABAN 5 MG TABLET PO SCH ×2 (08:41→16:15)
[2022-06-21] MEDS: DOXYCYCLINE HYCLATE (100 MG) 100 MG TABLET PO SCH ×2 (08:41→22:22)
--- NOTE | 2022-06-21 08:47 | NUR ---
RT Pt refused tx at this time
[2022-06-21 12:00] VITALS: BP 129/73
[2022-06-21 16:00] VITALS: BP 126/82
[2022-06-21 20:00] VITALS: BP 135/78
--- NOTE | 2022-06-21 20:00 | NUR ---
MI[employer]OS[employer]FT CRM DEVELOPER OPENING NOTE RECEIVED PT IN BED, ALERT AND VERBALLY RESPONSIVE, AOX4. DENIES PAIN/DISCOMFORT AT THIS TIME. PT ON 10L 40% FIO2 VIA STOMA, O2 SAT 98%. ATTACHED TO EXTERNAL MONITOR SR. IV ACCESS ON RIGHT WRIST 24G, CLEAN AND DRY. CALL LIGHT WITHIN REACH. SAFETY PRECAUTIONS IMPLEMENTED: BED IN LOWEST POSITION, CALL LIGHT WITHIN REACH, SIDE RAILS UP X3. WILL CONT POC.
[2022-06-22] VITALS: BP 141/80
[2022-06-22] MEDS: PIPERACILLIN /TAZOBACTAM 3.375 G in IV D5W 50 ML IV SCH ×3 (00:11→11:31)
[2022-06-22] MEDS: IPRATROPIUM NEB FS 0.5 MG/2.5 ML AMPUL.NEB NEB SCH ×4 (01:50→20:14)
[2022-06-22 04:00] VITALS: BP 135/83
[2022-06-22] MEDS: oxyCODONE IR immediate release 5 MG PO PRN ×3 (04:03→17:25)
--- NOTE | 2022-06-22 04:04 | NUR ---
RECORDS ANALYSIS MANAGER NOTE PT C/O GENERALIZED BODY PAIN 01/07 PS. PRN MED GIVEN ORDERED PER PT'S REQUEST. WILL REASSESS. VSS.
[2022-06-22] MEDS ORDERED: PIPERACILLIN /TAZOBACTAM 3.375 G VIAL IV ONE (05:49)
[2022-06-22] MEDS: oxyCODONE HCL SR 20MG TAB.SR.12H PO SCH ×3 (05:51→21:29)
--- NOTE | 2022-06-22 06:52 | NUR ---
DENTAL SURGERY DOCTOR CLOSING NOTE PT IN BED, ASLEEP, EASILY AROUSABLE. NO EVIDENCE OF PAIN/DISCOMFORT NOTED. PT ON 10L 40% FIO2 VIA STOMA, O2 SAT 97%. ATTACHED TO EXTERNAL MONITOR READING SB-SR WITH OCCASIONAL SA HR60. IV ACCESS ON RIGHT WRIST 24G, CLEAN, DRY, AND PATENT, FLUSHES WELL. ALL NEEDS ATTENDED. ALL DUE MEDICATIONS GIVEN ORDERED. CALL LIGHT WITHIN REACH. SAFETY PRECAUTIONS IMPLEMENTED: BED IN LOWEST POSITION, CALL LIGHT WITHIN REACH, SIDE RAILS UP X3. WILL ENDORSE TO NEXT SHIFT.
[2022-06-22 07:00] LABS: BASOPHILS % (AUTO) 0.3 % (0.0-2.0); CALCIUM, SERUM 8.4 mg/dL (8.5-10.1); CREATININE 0.7 mg/dL (0.6-1.3); EOSINOPHILS % (AUTO) 6.4 % (0.0-6.0); HEMATOCRIT 40 % (39-51); HEMOGLOBIN 12.6 g/dL (13.5-17.5); LYMPHOCYTES # (AUTO) 0.5 K/uL (0.8-4.8); LYMPHOCYTES % (AUTO) 15.7 % (20.0-44.0); MEAN CORPUSCULAR HGB CONC 32 g/dl (31.0-36.0); MEAN CORPUSCULAR VOLUME 91 fL (80-96); MONOCYTES # (AUTO) 0.7 K/uL (0.1-1.30); MONOCYTES % (AUTO) 23.2 % (2.0-12.0); NEUTROPHILS # (AUTO) 1.7 K/uL (1.8-8.9); NEUTROPHILS % (AUTO) 54.4 % (43.0-81.0); PLATELET COUNT (AUTO) 293 K/uL (150-450); POTASSIUM 4.2 mmol/L (3.5-5.1); RED BLOOD CELL COUNT(AUTO) 4.33 MIL/uL (4.5-6.0); WHITE BLOOD COUNT (AUTO) 3.1 K/uL (4.3-11.0)
[2022-06-22 08:00] VITALS: BP 141/76
--- NOTE | 2022-06-22 08:00 | NUR ---
DATA COLLECTION TECHNICIAN OPENING NOTE PT RECEIVED IN BED, AWAKE, A&O X4; PT'S STOMA INTACT AND PATENT WITH O2 AT 10L AND FIO2 OF 40%; TOLERATING WELL, NOT IN DISTRESS, COUGHING STILL NOTED, NO OTHER S/S OF RESP DISTRESS, NON-LABORED AND EQUAL BREATHING. PT ATTACHED TO EXTERNAL MONITOR, SR HR 60, MIDLINE ON LALI AND LEFT FOREARM NOTED PATENT AND INTACT, FLUSHES WELL. BED IN LOWEST POSITION, CALL LIGHT WITHIN REACH, SIDE RAILS UP X2. PLAN OF CARE CONTINUE.
[2022-06-22 08:24] LABS: EOSINOPHILS % (MANUAL) 6 % (0-4); LYMPHOCYTES % (MANUAL) 14 % (16-48); MONOCYTES % (MANUAL) 24 % (0-11.0); NEUTROPHILS % (MANUAL) 56 (42-76)
[2022-06-22] MEDS: ENSURE ENLIVE 237 ML LIQUID (VANILLA) PO SCH ×3 (08:37→16:07)
[2022-06-22] MEDS: DOXYCYCLINE HYCLATE (100 MG) 100 MG TABLET PO SCH (08:41)
[2022-06-22] MEDS: APIXABAN 5 MG TABLET PO SCH ×2 (08:42→16:37)
[2022-06-22] MEDS: AMIODARONE HCL 200 MG TABLET PO SCH ×2 (08:43→16:36)
[2022-06-22 12:00] VITALS: BP 133/76
--- NOTE | 2022-06-22 13:00 | NUR ---
SEEN BY DR. KALLI LOFTON AT BEDSIDE, WITH ORDER TO TITRATE 02, RT TITRATED IT DOWN TO 8L 35% FI02 TOLERATING WELL, NO SOB NOTED. PLAN OF CARE CONTINUE.
[2022-06-22 16:00] VITALS: BP 133/77
[2022-06-22] MEDS: CEFEPIME 1 GM in IV D5W 50 ML IV SCH (16:37)
--- NOTE | 2022-06-22 17:47 | NUR ---
SPUTUM COLLECTED FROM TRACH STOMA BY RT, CALLED LAB TO PICK IT UP. PLAN OF CARE CONTINUE.
--- NOTE | 2022-06-22 18:23 | NUR ---
TELEVISION NEWS VIDEO EDITOR CLOSING NOTE PT RECEIVED IN BED, AWAKE, A&O X4; PT'S STOMA INTACT AND PATENT WITH O2 AT 8L AND FIO2 OF 35%; TOLERATING WELL, NOT IN DISTRESS, COUGHING STILL NOTED, NO OTHER S/S OF RESP DISTRESS, NON-LABORED AND EQUAL BREATHING. PT ATTACHED TO EXTERNAL MONITOR, SR HR 63, MIDLINE ON LALI AND LEFT FOREARM NOTED PATENT AND INTACT, FLUSHES WELL. BED IN LOWEST POSITION, CALL LIGHT WITHIN REACH, SIDE RAILS UP X2. WILL ENDORSE TO MOLDING AND TRIM INSTALLER NURSE FOR ADIEL.
--- NOTE | 2022-06-22 19:16 | NUR ---
SCHOOL CLEANER OPENING NOTE RECEIVED PT AWAKE IN BED. A/O X4 AND ABLE TO MAKE NEEDS KNOWN. WITH TRACH COLLAR @ 8LPM, TOLERATING WELL. NO SOB OR S/S OF RESPIRATORY DISTRESS. BREATHING EVEN AND UNLABORED. ON EXTERNAL GREETING CARD EDITOR READING SR 64 BPM. IV ACCESS LFA MF AND LALI ML, INTACT AND PATENT. SAFETY PRECAUTIONS IN PLACE. BED IN LOWEST LOCKED POSITION, HOB ELEVATED, SIDE RAILS UP X2, AND CALL LIGHT AND TABLE WITHIN REACH. ALL NEEDS MET AT THIS TIME.
[2022-06-22 20:00] VITALS: BP 117/75
[2022-06-23] VITALS: BP 127/73
[2022-06-23] MEDS: IPRATROPIUM NEB FS 0.5 MG/2.5 ML AMPUL.NEB NEB SCH ×4 (01:50→19:30)
[2022-06-23 04:00] VITALS: BP 111/73
[2022-06-23] MEDS: oxyCODONE HCL SR 20MG TAB.SR.12H PO SCH ×3 (05:01→20:28)
--- NOTE | 2022-06-23 06:30 | NUR ---
METALWORKER CLOSING NOTE PT AWAKE IN BED. A/O X4 AND ABLE TO MAKE NEEDS KNOWN. WITH TRACH COLLAR @ 5LPM, FIO2 28%, SATURATING 92-96% DURING SHIFT. NO SOB OR S/S OF RESPIRATORY DISTRESS. BREATHING EVEN AND UNLABORED. ON EXTERNAL PHARMACOLOGY PROFESSOR READING SR 62 BPM. IV ACCESS LFA MF AND LALI ML, INTACT AND PATENT. ALL DUE MEDS GIVEN ORDERED. KEPT CLEAN AND DRY. SAFETY PRECAUTIONS IN PLACE AT ALL TIMES. BED IN LOWEST LOCKED POSITION, HOB ELEVATED, SIDE RAILS UP X2, AND CALL LIGHT AND TABLE WITHIN REACH. ALL NEEDS MET AT THIS TIME AND WILL ENDORSE TO ONCOMING NURSE FOR ADIEL.
[2022-06-23 06:44] LABS: BASOPHILS % (AUTO) 0.3 % (0.0-2.0); EOSINOPHILS % (AUTO) 9.9 % (0.0-6.0); HEMATOCRIT 40 % (39-51); LYMPHOCYTES # (AUTO) 0.7 K/uL (0.8-4.8); LYMPHOCYTES % (AUTO) 16.5 % (20.0-44.0); MEAN CORPUSCULAR HGB CONC 33 g/dl (31.0-36.0); MEAN CORPUSCULAR VOLUME 91 fL (80-96); MONOCYTES # (AUTO) 0.9 K/uL (0.1-1.30); MONOCYTES % (AUTO) 23.5 % (2.0-12.0); NEUTROPHILS % (AUTO) 49.8 % (43.0-81.0); PLATELET COUNT (AUTO) 338 K/uL (150-450)
[2022-06-23 06:53] LABS: CALCIUM, SERUM 8.6 mg/dL (8.5-10.1); CREATININE 0.9 mg/dL (0.6-1.3); POTASSIUM 4.4 mmol/L (3.5-5.1)
--- NOTE | 2022-06-23 07:00 | NUR ---
GAME ARTIST OPENING NOTE PT IN BED, ASLEEP BUT EASILY AROUSABLE. TRACH COLLAR INTACT AND PATENT WITH O2 AT 5L AND FIO2 AT 40%; NO S/S OF RESP DISTRESS, NON-LABORED AND EQUAL BREATHING. PT ON TELE MONITOR CURRENTLY READING SINUS RHYTHM 64. NO SIGNS OF PAIN OR DISCOMFORT NOTED AT THIS TIME. PT HAS LEFT FOREARM ML G18, PATENT AND FLUSHES WELL. ALL SAFETY MEASURES IN PLACE. CALL LIGHT WITHIN REACH. BED LOCKED AND IN LOWEST POSITION, SIDE RAILS UP X3. BED ALARM ON.WILL MONITOR
[2022-06-23] MEDS: ENSURE ENLIVE 237 ML LIQUID (VANILLA) PO SCH ×3 (07:30→17:18)
[2022-06-23 08:00] VITALS: BP 139/83
[2022-06-23] MEDS: oxyCODONE IR immediate release 5 MG PO PRN ×3 (08:05→16:17)
[2022-06-23] MEDS: APIXABAN 5 MG TABLET PO SCH ×2 (08:52→16:18)
[2022-06-23] MEDS: AMIODARONE HCL 200 MG TABLET PO SCH ×2 (08:53→16:18)
[2022-06-23] MEDS: CEFEPIME 1 GM in IV D5W 50 ML IV SCH ×2 (08:53→17:18)
[2022-06-23] MEDS: DOCUSATE SODIUM 100 MG CAPSULE PO SCH ×2 (11:00→11:09)
[2022-06-23 12:00] VITALS: BP 114/75
[2022-06-23] MEDS: DOCUSATE SODIUM LIQ 100 MG/10 ML UDC PO SCH (12:00)
[2022-06-23 12:37] LABS: BAND % (MANUAL) 1 % (0.0-5.0); EOSINOPHILS % (MANUAL) 5 % (0-4); LYMPHOCYTES % (MANUAL) 15 % (16-48); MONOCYTES % (MANUAL) 24 % (0-11.0); NEUTROPHILS % (MANUAL) 55 (42-76)
[2022-06-23 16:00] VITALS: BP 124/71
--- NOTE | 2022-06-23 19:24 | NUR ---
APPLICATIONS DEVELOPER CLOSING NOTE PT REMAINS IN BED, AWAKE, A&O X4, TRACH COLLAR INTACT AND PATENT, PT ABLE TO SUCTION SELF. O2SAT 99% NOTED TO HAVE COUGH AND SOB, NO OTHER S/S OF RESP DISTRESS, NON-LABORED AND EQUAL BREATHING. ATTACHED TO EXTERNAL MONITOR, SR WITH HR 65 O REMOVE IT , IV LINE LEFT FOREARM ML G 18 , .ALL MEDICATIONS WERE ADMINISTERED ORDERED, ALL NEEDS WERE MET. BED IS IN LOWEST POSITION, CALL LIGHT WITHIN REACH, SIDE RAILS UP X2. WILL ENDORSE COMMUNICATIONS ATTENDANT NURSE TO FALLOW POC
--- NOTE | 2022-06-23 19:30 | NUR ---
AUTO RENTAL SUPERVISOR OPENING NOTE RECEIVED PT IN BED, AWAKE, A/O X 4, ABLE TO MAKE NEEDS KNOWN. WITH TRACH COLLAR @ 5 LPM, TOLERATING WELL. O2 SAT @ >95%. NO SOB. NO S/SX OF ACUTE RESPIRATORY DISTRESS NOTED AT THIS TIME. BREATHING IS EVEN AND UNLABORED. ON EXTERNAL COMPUTED TOMOGRAPHY TECHNOLOGIST READING SR HR IN 70s. IV ACCESS IN LFA MF AND LALI ML, BOTH INTACT AND PATENT. ALL SAFETY PRECAUTIONS IN PLACE: BED LOCKED IN LOW POSITION, HOB ELEVATED, SIDE RAILS UP X2, AND CALL LIGHT AND TABLE WITHIN REACH. WILL CONTINUE TO MONITOR PT.
[2022-06-23 20:00] VITALS: BP 129/72
[2022-06-24] VITALS: BP 151/80
[2022-06-24] MEDS: oxyCODONE IR immediate release 5 MG PO PRN ×4 (00:37→17:12)
--- NOTE | 2022-06-24 00:45 | NUR ---
RN NOTE PT GIVEN HIS USUAL PRN PAIN MEDICATION. NO RESPI DISTRESS NOTED.
[2022-06-24] MEDS: IPRATROPIUM NEB FS 0.5 MG/2.5 ML AMPUL.NEB NEB SCH ×4 (02:03→19:30)
[2022-06-24 04:00] VITALS: BP 120/91
[2022-06-24] MEDS: oxyCODONE HCL SR 20MG TAB.SR.12H PO SCH ×3 (04:13→21:51)
--- NOTE | 2022-06-24 06:05 | NUR ---
RN NOTE NO SIGNIFICANT CHANGE T/O THE NIGHT. ALL DUE MEDS GIVEN. NEEDS ATTENDED TO. TURNED AND REPOSITIONED. WILL ENDORSE TO AM SHIFT NURSE FOR ADIEL.
[2022-06-24 07:08] VITALS: BP 120/89
--- NOTE | 2022-06-24 07:09 | NUR ---
on trach collar ,titrate down to 4 liters sat 97%,will continue to ff. up.
--- NOTE | 2022-06-24 07:26 | NUR ---
SUPERVISOR GARMENT MANUFACTURING OPENING NOTE RECEIVED PT AWAKE AND RESTING IN BED. PT IS A/O X4, ABLE TO MAKE NEED KNOWN. PT IS ON TRACH COLLAR AT 4L/MIN, TOLERATING WELL. NO SOB NOTED. NOT IN ANY SIGN OF RESPIRATORY DISTRESS. ON TELE BEET TOPPER WITH CURRENT READING OF SINUS RHYTHM, HR 65. NO C/O CARDIAC DISTRESS NOTED AT THIS TIME. IV ACCESS IN LFA MIDLINE, INTACT AND PATENT. SAFETY MEASURE IN PLACE: BED IN LOWEST AND LOCKED POSITION, SIDE RAILS UP X2, AND CALL LIGHT WITHIN REACH. WILL CONTINUE TO MONITOR PT.
[2022-06-24 08:00] VITALS: BP 102/59
[2022-06-24] MEDS: ENSURE ENLIVE 237 ML LIQUID (VANILLA) PO SCH ×3 (08:20→17:08)
--- NOTE | 2022-06-24 08:45 | NUR ---
RT NOTE PATIENT PLACED ON ROOM AIR PER MD. ABG TO BE DRAWN ON ROOM AIR. HALI CHARGE NURSE NOTIFIED AND AWARE. SpO2 92% ON ROOM AIR. MONITORING CLOSELY FOR ANY CHANGES.
[2022-06-24] MEDS: AMIODARONE HCL 200 MG TABLET PO SCH ×2 (09:00→16:58)
[2022-06-24] MEDS: DOCUSATE SODIUM LIQ 100 MG/10 ML UDC PO SCH (09:11)
[2022-06-24] MEDS: CEFEPIME 1 GM in IV D5W 50 ML IV SCH ×2 (09:12→16:59)
[2022-06-24] MEDS: APIXABAN 5 MG TABLET PO SCH ×2 (09:13→16:59)
--- NOTE | 2022-06-24 11:11 | NUR ---
RN NOTE PT C/O GENERALIZED BODY PAIN WITH PAIN SCALE LEVEL OF 8/10 AND REQUESTED FOR OXY IR PAIN MEDICATION. OXYCODONE IR 15MG PO GIVEN ORDERED PRN Q4HRS. WILL MONITOR AND REASSESS PT.
[2022-06-24 12:00] VITALS: BP 110/73
--- NOTE | 2022-06-24 14:17 | NUR ---
RT PATIENT ASSESSED FOR ABG BLOOD DRAW. PATIENT IS AWAKE , ALERT, WITH ZERO COMPLAINTS OF SOB. SPO2 92% ON ROOM AIR. PATIENT VERBALLY REFUSED ABG. CHARGE NURSE HALI NOTIFIED.
[2022-06-24] MEDS ORDERED: APIX5TAB PO (14:26)
[2022-06-24] MEDS ORDERED: AMIO200T7 PO (14:26)
--- NOTE | 2022-06-24 16:14 | NUR ---
patient room air saturation at rest 88%,need o2 per md.
[2022-06-24] MEDS ORDERED: AMOX-430 PO (16:29)
--- NOTE | 2022-06-24 17:53 | NUR ---
CALLED [facility] REGARDING O2 PER EXCHANGE THEY WILL CALL THE AT [phone] [place] THE ADDRESS ON FILE DID NOT MATCH PT ADDRESS ON FACE SHEET.
--- NOTE | 2022-06-24 17:59 | NUR ---
NOTIFIED SACHA AND GAVE PHONE NUMBER OF [employer] [phone] SINCE [facility] DOESNOT WANT DISCLOSED ADDRESS ON FILE.
--- NOTE | 2022-06-24 18:01 | NUR ---
PER SHE ALREADY UPDATED INSURANCE AND [facility] UP,WILL ENDORSE TO NIGHT CHARGE NURSE.
--- NOTE | 2022-06-24 18:51 | NUR ---
COLOR SPECIALIST CLOSING NOTE PT AWAKE AND RESTING IN BED. PT IS A/O X4, ABLE TO MAKE NEED KNOWN. PT IS ON TRACH COLLAR AT 4L/MIN, TOLERATING WELL. NO SOB NOTED. NOT IN ANY SIGN OF RESPIRATORY DISTRESS. ON TELE FILM ARCHIVIST WITH CURRENT READING OF SINUS RHYTHM, HR 80. NO C/O CARDIAC DISTRESS NOTED AT THIS TIME. IV ACCESS IN LFA MIDLINE, INTACT AND PATENT. ALL NEEDS ATTENDED. KEPT CLEAN AND COMFORTABLE AT ALL TIMES. SAFETY MEASURE IN PLACE: BED IN LOWEST AND LOCKED POSITION, SIDE RAILS UP X2, AND CALL LIGHT WITHIN REACH. PT WILL BE DISCHARGE ONCE HOME OXYGEN WILL BE DELIVERED. WILL ENDORSE TO PROFESSIONAL NURSING TUTOR NURSE FOR ADIEL.
--- NOTE | 2022-06-24 19:30 | NUR ---
AVAYA ENGINEER OPENING NOTE RECEIVED PT AWAKE AND RESTING IN BED. PT IS A/O X4, ABLE TO MAKE NEED KNOWN. PT IS ON TRACH COLLAR AT 3L/MIN, TOLERATING WELL. NO SOB NOTED. NOT IN ANY SIGN OF RESPIRATORY DISTRESS. ON TELE STRUCTURAL STEEL SHOP SUPERVISOR WITH CURRENT READING OF SINUS RHYTHM, NO C/O CARDIAC DISTRESS NOTED AT THIS TIME. IV ACCESS IN LFA MIDLINE, INTACT AND PATENT. SAFETY MEASURE IN PLACE: BED IN LOWEST AND LOCKED POSITION, SIDE RAILS UP X2, AND CALL LIGHT WITHIN REACH. WILL CONTINUE TO MONITOR THROUGHOUT THE SHIFT.
[2022-06-24 20:00] VITALS: BP 105/55
--- NOTE | 2022-06-24 23:00 | NUR ---
RN NOTE PT D/C TO HOME ON 3L O2 VIA TRACH COLLAR. PT A/O X4, ABLE TO MAKE NEEDS KNOWN, NOT IN ANY S/SX OF RESPIRATORY DISTRESS, V/S TAKEN AND RECORDED, ALL DUE MEDS GIVEN, DISCHARGE INSTRUCTIONS GIVEN AND COPY PROVIDED, PT VERBALIZED UNDERSTANDING. IV ACCESS TAKEN OUT AND ASSISTED PT TO CHANGE CLOTHING.
--- NOTE | 2022-06-24 23:15 | NUR ---
RN NOTE RECEIVED CALL FROM JOANA (), PT GOT HOME SAFE.
== END 2022-06-25 | disposition home health service (06) | DRG 871 ==
LOC: ER 21:37 → TELE-TD 06-17 08:04 → ICU 06-19 08:16 → TELE1 06-19 11:06 → TELE-TD 06-19 21:18 → TELE1 06-21 16:17
PROVIDERS: ADMIT Nurse Practitioner Acute Care; ATTEND Nurse Practitioner Acute Care
PROC: 05H933Z Insertion of Infusion Device into Right Brachial Vein, Percutaneous Approach (ICD-10-PCS; principal; 2022-06-17)
PROC: 5A2204Z Restoration of Cardiac Rhythm, Single (ICD-10-PCS; 2022-06-19)
PROC: 05HC33Z Insertion of Infusion Device into Left Basilic Vein, Percutaneous Approach (ICD-10-PCS; 2022-06-21)
DX: A41.89 Other specified sepsis (principal); J10.08 Influenza due to other identified influenza virus with other specified pneumonia; J15.9 Unspecified bacterial pneumonia; J96.21 Acute and chronic respiratory failure with hypoxia; E44.0 Moderate protein-calorie malnutrition; E87.1 Hypo-osmolality and hyponatremia; J44.0 Chronic obstructive pulmonary disease with (acute) lower respiratory infection; J44.1 Chronic obstructive pulmonary disease with (acute) exacerbation; F11.20 Opioid dependence, uncomplicated; R64 Cachexia; Z68.1 Body mass index [BMI] 19.9 or less, adult; Z93.0 Tracheostomy status; Z20.822 Contact with and (suspected) exposure to COVID-19; Z85.21 Personal history of malignant neoplasm of larynx; Z90.02 Acquired absence of larynx; Z85.72 Personal history of non-Hodgkin lymphomas; I48.91 Unspecified atrial fibrillation; Z88.5 Allergy status to narcotic agent; Z79.51 Long term (current) use of inhaled steroids; Z79.899 Other long term (current) drug therapy; I16.0 Hypertensive urgency; I10 Essential (primary) hypertension; E86.1 Hypovolemia; E88.09 Other disorders of plasma-protein metabolism, not elsewhere classified; E83.51 Hypocalcemia; G89.4 Chronic pain syndrome; Z87.891 Personal history of nicotine dependence; F41.9 Anxiety disorder, unspecified; J10.1 Influenza due to other identified influenza virus with other respiratory manifestations; J20.8 Acute bronchitis due to other specified organisms
CPT/HCPCS: 31720; 36410; 36415; 71045-TC; 80048-TC; 80053-TC; 80076-TC; 83605-TC; 83735-TC; 83880; 84100-TC; 84439-TC; 84443-TC; 84484-TC; 85025-TC; 85378-TC; 87081-TC; 93307-TC; 94640-TC; 94664-TC; 94760-TC; 94799-TC; 97116-TC; 97530-TC; A4624; C9803; G0378; J0153; J0282; J0692; J0696; J1650; J2060; J2270; J2543; J2704; J2930; J3490; J7030; J7040; J7050; J7060; Q9967